=== PATIENT | male | born 1970 | race American Indian/Alaskan Native ===

== ENCOUNTER 2016-11-24 07:51 | Outpatient (CLI) | payer BC ==
--- NOTE | 2016-11-24 09:10 | Ultrasound Report ---
ULTRASOUND SCROTAL INDICATION: Groin pain. COMPARISON: None similar at this institution. FINDINGS: Longitudinal and transverse grayscale and color flow sonographic evaluation of the scrotum and its contents demonstrates normal testicular contour and echotexture bilaterally without suspicious intrinsic lesions. Preserved bilateral blood flow. Right testicle estimated at 4.4 x 2.3 x 2.3 cm while the left testicle is 3.5 x 2.3 x 3.3 cm. Small bilateral hydroceles. Normal bilateral epididymi as well, estimated at 1.1 x 0.8 cm on the right and 1.1 x 0.7 cm on the left. Left sided varicocele. CONCLUSION: Small bilateral hydroceles and left-sided varicocele without acute testicular sonographic abnormality, as described. Thank you for the opportunity to participate in this patient's care.
== END 2016-11-24 07:52 | disposition home or self-care (01) ==
LOC: US 07:51
PROVIDERS: ATTEND Family Medicine
DX: N43.3 Hydrocele, unspecified (principal); I86.1 Scrotal varices
CPT/HCPCS: 93975